=== PATIENT | female | born 1995 | race Caucasian/White ===

== ENCOUNTER → 2018-05-10 | Outpatient (CLI) | payer BC ==
--- NOTE | 2018-05-10 15:43 | XR ---
EXAMINATION TYPE: XR abdomen 2V DATE OF EXAM: 05/10/2018 COMPARISON: NONE HISTORY: Abdominal pain TECHNIQUE: One view abdominal series FINDINGS: The osseous structures are intact. The bowel gas pattern is nonspecific. Lung bases are clear. Ther e appears to be a debris and fluid-filled stomach. IMPRESSION: 1. Nonspecific abdomen. Debris and fluid-filled stomach and be associated with gastroparesis or less likely gastric outlet obstruction. Correlate clinically.
== END ==
LOC: RADXRYALE 14:07
PROVIDERS: ATTEND Physician Assistant Medical
DX: K31.84 Gastroparesis (principal)
CPT/HCPCS: 74019